=== PATIENT | female | born 1950 | race Caucasian/White ===

== ENCOUNTER 2017-01-12 14:55 | Emergency (ER) | payer BC ==
[2010-10-10 08:28] VITALS: BMI 45.1
[2017-01-12 15:29] LABS: BASOPHILS 0.6 % (0.0-2.0); EOSINOPHILS 2.8 % (0-7); HEMATOCRIT 43.8 % (36.0-48.0); HEMOGLOBIN 14.1 g/dL (12-16); IMMATURE GRANULOCYTES 0.1 % (0-5); LYMPHOCYTES 23.4 % (15-50); MCH 29.4 pg (26.0-34.0); MCHC 32.2 g/dL (31.0-37.0); MCV 91.4 fL (80.0-100.0); MEAN PLATELET VOLUME 10.4 fL (7.4-10.4); MONOCYTES 7.9 % (2-11); NEUTROPHILS 65.2 % (40-80); PLATELET COUNT 228 10x3/uL (130-400); RBC 4.79 10x6/uL (4.00-5.40); RDW 13.4 % (11.5-14.5); WBC 8.7 10x3/uL (4.8-10.8)
[2017-01-12 15:39] LABS: APTT 24.4 SECONDS (22.8-39.4); PROTIME 13.1 SECONDS (11.6-15.0)
[2017-01-12 15:52] LABS: ALBUMIN 3.9 g/dL (3.4-5.0); ALKALINE PHOSPHATASE 85 U/L (46-116); ALT (SGPT) 16 U/L (10-68); BILIRUBIN - TOTAL 0.35 mg/dL (0.2-1.3); CALC OSMOLALITY 285 mosm/kg (275-300); CARBON DIOXIDE 29.8 mmol/L (21.0-32.0); CHLORIDE - SERUM 105 mmol/L (98-107); CREATININE - SERUM 0.7 mg/dL (0.6-1.3); GLUCOSE 107 mg/dL (74-106); POTASSIUM - SERUM 4.8 mmol/L (3.5-5.1); SODIUM 142 mmol/L (136-145); UREA NITROGEN 20 mg/dL (7-18); eGFR NON AFRICAN AMERICAN 89 mL/min (90-120)
== END 2017-01-12 17:48 | disposition home or self-care (01) ==
LOC: D.ER 14:55
PROVIDERS: Emergency Medicine
DX: R53.1 Weakness (principal); I45.10 Unspecified right bundle-branch block

== ENCOUNTER → 2017-02-03 21:26 | Outpatient (CLI) | payer BC ==
[2010-10-10 08:28] VITALS: BMI 45.1
[2017-02-03 22:26] LABS: T4 THYROXIN - FREE 1.05 ng/dL (0.76-1.46); T4 THYROXINE 8.5 ug/dL (4.7-13.3); THYROID STIMULATING HORMONE 2.13 uIU/mL (0.36-3.74)
== END | disposition home or self-care (01) ==
LOC: D.LABREF 21:26
PROVIDERS: Internal Medicine Interventional Cardiology
DX: E03.9 Hypothyroidism, unspecified (principal)